=== PATIENT | female | born 1960 | race African-American/Black ===

== ENCOUNTER → 2016-12-27 | Outpatient (CLI) | payer OTHER ==
[~2016-12-27] MED LIST: ACETAMINOPHEN325 M1; ADULT LOW DOSE81 MG; ASPIR 8181 M1 PO; ASPIRIN EC81 M1 PO; ATIVAN1 MG; BENTROPINE PO; BENZTROPINE MES1 MG PO; BOOST244 ML PO; DEPAKOTE ER500 MG PO; DESYREL50 MG; FENTANYL PA50 MCG/HR TRANSDERM; FLUOXETINE HCL20 M1 PO; FLUOXETINE HCL40 MG PO; FLUVOXAMINE MA100 M1 PO; FUROSEMIDE 40 M40 M1; HALDOL DEC100 MG/1 M IM; HALDOL5 MG/1 ML IM; HALOPERIDOL 5 MG5 MG; HALOPERIDOL10 MG PO; IBUPROFEN 400400 M1; K-DUR10 ME1; LASIX 20 MG TAB20 MG PO; LOPERAMIDE 2 MG2 M1; MELATONIN3 MG PO; MOM PO; OYSTER SHELL C1 EA12; OYSTER SHELL C1 EA13 PO; OYSTER SHELL C1 EA14 PO; PAIN & FEVER325 MG PO; PROZAC20 MG PO; RISPERDAL 1 MG T1 MG PO; RISPERDAL 3 MG T3 M1 PO; RISPERDAL CONSTA IM; RISPERDAL M-TAB2 MG; ROBITUSSIN DM118 ML PO; ROBITUSSIN100 MG/53 PO; SEROQUEL400 MG PO; THERAPEUTIC-M1 EAC2; TOPAMAX100 MG PO; TRAZODONE 150150 M1 PO; TYLENOL325 MG PO; VENTOLIN17 GM; VITAMIN D2000 UNIT PO; XANAX 0.5 MG0.5 M1 PO
== END ==
LOC: CAT 09:19
DX: D16.9 Benign neoplasm of bone and articular cartilage, unspecified (principal); R51 Headache

== ENCOUNTER 2020-10-30 21:38 | Emergency (ER) | payer OTHER ==
[~2020-10-30] VITALS: Ht 157.5 cm; Wt 52.2 kg
[2020-10-30] MEDS ORDERED: HYDROCODON-ACE1 EAC7 PO (22:41)
[2020-10-30 23:47] VITALS: BP 134/72
== END 2020-10-30 23:49 | disposition home or self-care (01) ==
LOC: ER 21:38
DX: S42.292A Other displaced fracture of upper end of left humerus, initial encounter for closed fracture (principal); I10 Essential (primary) hypertension; G43.909 Migraine, unspecified, not intractable, without status migrainosus; Z79.82 Long term (current) use of aspirin; Z79.899 Other long term (current) drug therapy; W18.09XA Striking against other object with subsequent fall, initial encounter; Y93.89 Activity, other specified; Y92.89 Other specified places as the place of occurrence of the external cause; Y99.9 Unspecified external cause status